=== PATIENT | female | born 1990 | race Caucasian/White ===

== ENCOUNTER 2021-10-18 17:33 | Emergency (ER) | payer OTHER, SELFPAY ==
[2021-10-18 17:51] VITALS: BP 123/71; PULSE 87; RESP 20; TEMP 37; O2SAT 100
--- NOTE | 2021-10-18 18:16 | ED.GENADULT ---
HPI - General Adult General Chief complaint: Dental/Oral Stated complaint: Toothache/ Facial Swelling Source: patient Mode of arrival: ambulatory Limitations: no limitations History of Present Illness HPI narrative: Patient presents for evaluation of left upper dental pain for the last 4 days. Pain is constant, throbbing, 9 out of 10 in severity. She reports some left maxillary facial swelling. She has a known dental fracture in the affected area which is not new per her reports. No difficulty handling secretions. No trismus. No fever, chills, nausea, vomiting. She has tried taking ibuprofen, naproxen, Tylenol, and tramadol without significant improvement in her symptoms thereafter. She does have an underlying allergy to PCN but states that she is able to tolerate amoxicillin. She has an appt with a dentist in November. No additional complaints or concerns. Related Data Home Medications Medication Instructions Recorded Confirmed lisinopril 10 mg tablet 10 mg PO DAILY 10/18/21 10/18/21 naproxen 375 mg tablet 375 mg PO BID 10/18/21 10/18/21 tramadol 50 mg tablet 50 mg PO QID PRN Pain 10/18/21 10/18/21 Allergies Allergy/AdvReac Type Severity Reaction Status Date / Time Penicillins Allergy Rash Verified 10/18/21 17:50 Review of Systems Review of Systems: CONSTITUTIONAL: Denies fever, chills, or sweats. EYES: Denies visual changes, redness, or discharge. ENT: Reports left sided facial swelling and left upper dental pain. CARDIOVASCULAR: Denies chest pain, palpitations, or edema. RESPIRATORY: Denies cough or dyspnea. GASTROINTESTINAL: Denies abdominal pain, nausea, vomiting, or diarrhea. GENITOURINARY: Denies dysuria or hematuria. SKIN: Denies rash or itching. MUSCULOSKELETAL: Denies back pain, joint pain, or myalgia. NEUROLOGIC: Denies headache, numbness, dizziness, or weakness. PSYCHIATRIC: Denies anxiety or depression. [facility] Past Medical History Medical History Tooth fracture Surgical History Surgical History History of Family History Family History Mother No pertinent family history Social History Social History Alcohol intake: never Substance use: never Living arrangements: with family Gender identity (if verbalized by the patient): Female Sexual Orientation (if Verbalized by the Patient): Straight or Heterosexual Spiritual care concerns: No Exam Narrative: GENERAL: Well-appearing, well-nourished, and in no acute distress. HEAD: Atraumatic. There is swelling noted to left maxillary region EYES: PERRLA and EOMI. ENT: Nares clear, no rhinorrhea or epistaxis. Mucous membranes moist. Overall poor dentition. There is erosion to enamel of multiple teeth. Tooth #12 is fractured. There is some tenderness in the gumline superior to tooth #12. Oropharynx without tonsillar hypertrophy exudate or other lesions. Bilateral TMs pearly hood nonbulging NECK: Supple. No adenopathy or masses. No carotid bruits or JVD CHEST: Clear to auscultation. No respiratory distress. No wheezes rales or rhonchi HEART: Regular rate and rhythm. No murmur heard. Normal peripheral pulses. ABDOMEN: Soft, nontender, nondistended, normal active bowel sounds. EXTREMITIES: Normal range of motion. No edema. SKIN: Warm, dry, no rash. NEURO: No focal deficits. Alert and oriented x3. PSYCH: Normal mood and affect. Course Course Emergency Course: This is a 31-year-old female here today for dental pain. There is a fracture of tooth #12. She has tolerated amoxicillin in the past. Will dc amoxicillin and hydrocodone. Follow-up with dentist. Go to the ER for decline in condition. Patient agreement plan of care. Level of Care: Express Care Visit Vital Signs Vital signs:
== END 2021-10-18 18:20 | disposition home or self-care (01) ==
PROVIDERS: Emergency Provider Nurse Practitioner; PCP Family Medicine
DX: S02.5XXA Fracture of tooth (traumatic), initial encounter for closed fracture (principal); X58.XXXA Exposure to other specified factors, initial encounter
CPT/HCPCS: 99213; G0463

== ENCOUNTER 2021-12-25 18:21 | Emergency (ER) | payer OTHER, SELFPAY ==
--- NOTE | 2021-12-25 18:24 | ED.URI ---
HPI - URI/Sore Throat General Chief Complaint: Upper Respiratory Infection Stated Complaint: Chest Congestion/Sore Throat/Fever Time Seen by Provider: 12/25/21 18:24 Source: patient and RN notes reviewed History of Present Illness HPI Narrative: Patient is a 31-year-old female who presents the urgent care with complaints of sore throat, fever, cough, congestion. Patient states that started yesterday and she has felt very fatigued today. Patient had a COVID booster on Wednesday due to work policy. Patient states has been taking Tylenol without much relief. 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 Other acute complaints. No acute distress noted. Patient aware of the plan of care. Some parts of this dictation were generated by voice recognition software and may contain typographical and/or grammatical inaccuracies. Related Data Home Medications Medication Instructions Recorded Confirmed lisinopril 10 mg tablet 10 mg PO DAILY 10/18/21 12/25/21 naproxen 375 mg tablet 375 mg PO BID 10/18/21 12/25/21 tramadol 50 mg tablet 50 mg PO QID PRN Pain 10/18/21 12/25/21 Allergies Allergy/AdvReac Type Severity Reaction Status Date / Time Penicillins Allergy Rash Verified 12/25/21 18:58 Review of Systems Review of Systems: CONSTITUTIONAL: Reports of fever and chills EYES: Denies visual changes, redness, or discharge. ENT: Reports of rhinorrhea, nasal congestion, sore throat CARDIOVASCULAR: Denies chest pain, palpitations, or edema. RESPIRATORY: Reports a cough without dyspnea GASTROINTESTINAL: Denies abdominal pain, nausea, vomiting, or diarrhea. GENITOURINARY: Denies dysuria or hematuria. SKIN: Denies rash or itching. MUSCULOSKELETAL: Denies back pain, joint pain. Reports of body aches NEUROLOGIC: Denies headache, numbness, or weakness. All other systems reviewed are negative, except as documented in HPI. [facility] Past Medical History Medical History Tooth fracture Surgical History Surgical History History of Family History Family History Mother No pertinent family history Social History Social History Alcohol intake: never Substance use: never Gender identity (if verbalized by the patient): Female Sexual Orientation (if Verbalized by the Patient): Straight or Heterosexual Spiritual care concerns: No Comments At the time of my signature, I reviewed and agree with the nursing past medical, surgical, social, and family history. There is no relevant family history pertinent to the patient complaint. Exam Narrative: GENERAL: This is a well-nourished, well-developed patient. Appears fatigued HEAD: normocephalic, atraumatic. EYES: PERRL. Sclera clear/white. Vision is grossly intact. EARS: External ears normal, auditory canals clear and without drainage, TMs normal without perforation. Hearing grossly intact. NOSE: External nose normal with no obvious nasal discharge. Bilateral erythemic nares with clear rhinorrhea THROAT: Mucous membranes moist. Moderate postnasal drainage with moderate erythema without exudate or ulceration. No tonsillar edema. NECK: Neck supple, non-tender without lymphadenopathy CARDIOVASCULAR: Regular rate and rhythm without murmurs, gallops, or rubs. RESPIRATORY: Harsh cough noted on exam. Clear to auscultation. Breath sounds equal bilaterally. No wheezes, rales, or rhonchi. SKIN: Flushed. Warm, intact with no suspicious lesions or rash, good texture and turgor. NEURO: awake, alert, and oriented to person, place and time. There were no obvious focal neurologic abnormalities. EXTREMITIES: No clubbing, cyanosis, or edema. Course Course Level of Care: Express Care Visit Vital Signs Vital si
[2021-12-25 18:30] VITALS: BP 126/77; PULSE 116; RESP 20; TEMP 37.2; O2SAT 99
== END 2021-12-25 19:13 | disposition home or self-care (01) ==
PROVIDERS: Emergency Provider Nurse Practitioner Family; PCP Family Medicine
DX: B34.9 Viral infection, unspecified (principal)
CPT/HCPCS: 87081; 87804; 87880; 99213; G0463

== ENCOUNTER 2022-01-20 08:48 | Emergency (ER) | payer OTHER, SELFPAY ==
--- NOTE | ~2022-01-20 | XR_ITS ---
EXAMINATION: XR knee RT min 4V DATE: 01/20/2022 09:24 INDICATION: Right knee pain TECHNIQUE: Four views of the right knee were obtained. COMPARISON: None. FINDINGS: Alignment is normal. No fracture or osteochondral lesion. Joint spaces are normal with no e rosions. No joint effusion/synovitis. Soft tissues are unremarkable. IMPRESSION: 1. No acute osseous abnormality. Reviewed, dictated and finalized at location A.
--- NOTE | ~2022-01-20 | XR_ITS ---
EXAMINATION: XR ankle RT min 3V INDICATION: Right ankle pain TECHNIQUE: Four views of the right ankle are obtained. COMPARISON: None available FINDINGS: Bone alignment is normal. There is no fracture. A plantar calcaneal enthesophyte is noted. IMPRESSION: 1. No acute osseous abnormality. Reviewed, dictated and finalized at location A.
[2022-01-20 08:54] VITALS: BP 126/74; PULSE 85; RESP 16; TEMP 36.2; O2SAT 100
--- NOTE | 2022-01-20 09:11 | ED.GENADULT ---
HPI - General Adult General Chief complaint: Fall Stated complaint: Fall Injury/Right Foot/Knee Source: patient Mode of arrival: ambulatory Limitations: no limitations History of Present Illness HPI narrative: Patient presents for evaluation of right ankle and right knee pain. She indicates she was running in her yard last night to get her dog when she stepped in a hole. She twisted her right ankle and fell to the ground. She did not hit her head nor have loss of consciousness. Not on blood thinners. She now reports 10 out of 10 pain in the right ankle and right knee. Pain in right knee radiates into the right hip. She has a hx of sciatica for which she takes naproxen at home. She tried tylenol and naproxen with some improvement in her symptoms. No loss of ROM. Movement and weight bearing make her pain worse. No additional complaints or concerns. Related Data Home Medications Medication Instructions Recorded Confirmed lisinopril 10 mg tablet 10 mg PO DAILY 10/18/21 01/20/22 naproxen 375 mg tablet 375 mg PO BID 10/18/21 01/20/22 Allergies Allergy/AdvReac Type Severity Reaction Status Date / Time Penicillins Allergy Rash Verified 01/20/22 09:07 Review of Systems Review of Systems: CONSTITUTIONAL: Denies fever, chills, or sweats. EYES: Denies visual changes, redness, or discharge. ENT: Denies rhinorrhea, congestion, sore throat, or otalgia. CARDIOVASCULAR: Denies chest pain, palpitations, or edema. RESPIRATORY: Denies cough or dyspnea. GASTROINTESTINAL: Denies abdominal pain, nausea, vomiting, or diarrhea. GENITOURINARY: Denies dysuria or hematuria. SKIN: Denies rash or itching. MUSCULOSKELETAL: Reports right knee and right ankle pain. NEUROLOGIC: Denies headache, numbness, dizziness, or weakness. PSYCHIATRIC: Denies anxiety or depression. [facility] Past Medical History Medical History (Updated 01/20/22 @ 09:47 by DENILSON Thompson, JER) Right ankle sprain Tooth fracture Surgical History Surgical History History of History of cholecystectomy History of tonsillectomy Family History Family History Mother No pertinent family history Father Heart disease Social History Social History Smoking status: Never smoker Alcohol intake: never Substance use: current Substance use type: marijuana Living arrangements: with family Gender identity (if verbalized by the patient): Female Sexual Orientation (if Verbalized by the Patient): Straight or Heterosexual Spiritual care concerns: No Exam Narrative: GENERAL: Well-appearing, well-nourished, and in no acute distress. HEAD: Normocephalic, atraumatic. EYES: PERRLA and EOMI. ENT: Nares clear, no rhinorrhea or epistaxis. Mucous membranes moist. Oropharynx without tonsillar hypertrophy exudate or other lesions. Bilateral TMs pearly hood nonbulging NECK: Supple. No adenopathy or masses. No carotid bruits or JVD CHEST: Clear to auscultation. No respiratory distress. No wheezes rales or rhonchi HEART: Regular rate and rhythm. No murmur heard. Normal peripheral pulses. ABDOMEN: Soft, nontender, nondistended, normal active bowel sounds. EXTREMITIES: There is tenderness noted in the anterior aspect of the right knee, without crepitus or deformity. No swelling. Decreased range of motion of the right knee secondary to pain. There is tenderness over the right medial and lateral malleolus. There is no crepitus or deformity. Able to wiggle all digits of the right foot. Exhibits hesitancy with dorsi and plantar flexion secondary to pain. SKIN: Warm, dry, no rash. NEURO: No focal deficits. Alert and oriented x3. PSYCH: Normal mood and affect. Course Course Emergency Course: This is a 32-year-old female who presented for evaluation of right knee and right ankle
== END 2022-01-20 09:50 | disposition home or self-care (01) ==
PROVIDERS: Emergency Provider Nurse Practitioner; PCP Family Medicine
DX: S80.01XA Contusion of right knee, initial encounter (principal); S93.401A Sprain of unspecified ligament of right ankle, initial encounter; W17.2XXA Fall into hole, initial encounter
CPT/HCPCS: 73564; 73610; 99214; G0463

== ENCOUNTER 2022-04-14 10:34 | Emergency (ER) | payer OTHER, SELFPAY ==
[2022-04-14 10:49] VITALS: BP 135/74; PULSE 81; RESP 16; TEMP 36.9; O2SAT 99
--- NOTE | 2022-04-14 11:07 | ED.URI ---
HPI - URI/Sore Throat General Chief Complaint: Upper Respiratory Infection Stated Complaint: cold/flu Time Seen by Provider: 04/14/22 11:00 Source: patient and RN notes reviewed Mode of arrival: ambulatory Limitations: no limitations History of Present Illness HPI Narrative: 32-year-old female presenting for complaint of cough that will not stop for 4 days. Cough is nonproductive. She endorses it feels like someone is sitting on her chest and her throat is on fire. She endorses a temperature up to 101 last night, and has had diarrhea. She denies shortness of breath, wheezing, nausea or vomiting. She is not taking anything for symptoms. Reports Daughter is also sick. MD elicited complaint: cough Related Data Home Medications Medication Instructions Recorded Confirmed lisinopril 10 mg tablet 10 mg PO DAILY 10/18/21 04/14/22 albuterol sulfate 90 mcg/actuation 2 puff inhalation Q4-6H PRN 04/14/22 04/14/22 aerosol inhaler Shortness Of Breath Allergies Allergy/AdvReac Type Severity Reaction Status Date / Time Penicillins Allergy Rash Verified 04/14/22 11:03 Review of Systems Review of Systems: per HPI [facility] Past Medical History Medical History Right ankle sprain Tooth fracture Surgical History Surgical History History of History of cholecystectomy History of tonsillectomy Family History Family History Mother No pertinent family history Father Heart disease Social History Social History Smoking status: Never smoker Alcohol intake: never Substance use: current Substance use type: marijuana Gender identity (if verbalized by the patient): Female Sexual Orientation (if Verbalized by the Patient): Straight or Heterosexual Spiritual care concerns: No Exam Narrative: GENERAL: Ill-appearing, nontoxic EYES: PERRLA, conjunctivae clear ENT: Mucous membranes moist. TM pearly hood with dull light reflex bilaterally; no tragal tenderness. Oropharynx erythematous without lesions or exudate, no drooling, no hoarseness, no trismus, uvula midline. CHEST: Clear to auscultation, breath sounds equal. No wheezing, rhonchi, rales, or stridor. No respiratory distress, speaks in full sentences. HEART: Regular rate and rhythm. SKIN: Warm, dry, no rash. NEURO: Alert and oriented x3. PSYCH: Normal mood and affect Course Course Emergency Course: Patient is aware of diagnosis, understands and agrees to treatment plan. Anticipatory guidance given. Patient agrees to follow-up as directed and is aware of reasons to seek care at the emergency department. Portions of this record may have been created with voice recognition software Level of Care: Express Care Visit Vital Signs Vital signs: Vital Signs Temperature 98.4 F 04/14/22 10:49 Pulse Rate 81 04/14/22 10:49 Respiratory Rate 16 04/14/22 10:49 Blood Pressure 135/74 04/14/22 10:49 Pulse Oximetry 99 04/14/22 10:49 Oxygen Delivery Room Air 04/14/22 10:49 Temperature 98.4 F 04/14/22 10:49 Pulse Rate 81 04/14/22 10:49 Respiratory Rate 16 04/14/22 10:49 Blood Pressure 135/74 04/14/22 10:49 Pulse Oximetry 99 04/14/22 10:49 Oxygen Delivery Room Air 04/14/22 10:49 reviewed MDM - URI/Sore Throat MDM Narrative Medical decision making narrative: Advised supportive measures and signs/symptoms to go to the ER. Pt is appropriate for outpt treatment and f/u. Differential Diagnosis Differential diagnosis: Likely upper respiratory infection, sinusitis and viral infection Discharge Plan Discharge Clinical Impression: Viral infection Patient Disposition: Home, Self-Care Condition: Stable Instructions: Viral Syndrome (ED) Additional Instructions: Recommend [place]
== END 2022-04-14 11:12 | disposition home or self-care (01) ==
PROVIDERS: Emergency Provider Nurse Practitioner Family; PCP Family Medicine
DX: B34.9 Viral infection, unspecified (principal)
CPT/HCPCS: 99213; G0463

== ENCOUNTER 2022-07-09 08:57 | Emergency (ER) | payer OTHER, SELFPAY ==
--- NOTE | 2022-07-09 08:59 | ED.URI ---
HPI - URI/Sore Throat General Chief Complaint: Upper Respiratory Infection Stated Complaint: constant cough Time Seen by Provider: 07/09/22 08:59 Source: patient and RN notes reviewed History of Present Illness HPI Narrative: Patient is a 32-year-old female presents to urgent care with complaints of a cough for 5 days. Patient states she does have a history of asthma and has been needing her albuterol inhaler. Denies any wheezing or shortness of breath. Denies any fevers. Patient has been taking Robitussin, DayQuil and cold and flu medication. No other acute complaints. No acute distress noted. Patient aware plan of care. Some parts of this dictation were generated by voice recognition software and may contain typographical and/or grammatical inaccuracies. Related Data Home Medications Medication Instructions Recorded Confirmed albuterol sulfate 90 mcg/actuation 2 puff inhalation Q4-6H PRN 04/14/22 07/09/22 aerosol inhaler Shortness Of Breath Allergies Allergy/AdvReac Type Severity Reaction Status Date / Time Penicillins Allergy Rash Verified 07/09/22 09:07 Review of Systems Review of Systems: CONSTITUTIONAL: Denies fever, chills, or sweats. EYES: Denies visual changes, redness, or discharge. ENT: Denies rhinorrhea, congestion, sore throat, or otalgia. CARDIOVASCULAR: Denies chest pain, palpitations, or edema. RESPIRATORY: Reports nonproductive cough dyspnea GASTROINTESTINAL: Denies abdominal pain, nausea, vomiting, or diarrhea. GENITOURINARY: Denies dysuria or hematuria. SKIN: Denies rash or itching. MUSCULOSKELETAL: Denies back pain, joint pain, or myalgia. NEUROLOGIC: Denies headache, numbness, or weakness. All other systems reviewed are negative, except as documented in HPI. [facility] Past Medical History Medical History Right ankle sprain Tooth fracture Surgical History Surgical History History of History of cholecystectomy History of tonsillectomy Family History Family History Mother No pertinent family history Father Heart disease Social History Social History (Reviewed 04/14/22 @ 11:13 by CHICO Seay Smoking status: Never smoker Alcohol intake: never Substance use: current Substance use type: marijuana Living arrangements: with family Gender identity (if verbalized by the patient): Female Sexual Orientation (if Verbalized by the Patient): Straight or Heterosexual Spiritual care concerns: No Comments At the time of my signature, I reviewed and agree with the nursing past medical, surgical, social, and family history. There is no relevant family history pertinent to the patient complaint. Exam Narrative: GENERAL: This is a well-nourished, well-developed patient, in no apparent distress. HEAD: normocephalic, atraumatic. EYES: PERRL. Sclera clear/white. Vision is grossly intact. EARS: External ears normal, auditory canals clear and without drainage, TMs normal without perforation. Hearing grossly intact. NOSE: External nose normal with no obvious nasal discharge, nares without redness, no rhinorrhea. THROAT: Mucous membranes moist, posterior pharynx clear. Moderate postnasal drainage NECK: Neck supple, non-tender without lymphadenopathy CARDIOVASCULAR: Regular rate and rhythm without murmurs, gallops, or rubs. RESPIRATORY: Persistent harsh cough. Clear to auscultation. Breath sounds equal bilaterally. No wheezes, rales, or rhonchi. SKIN: warm, intact with no suspicious lesions or rash, good texture and turgor. NEURO: awake, alert, and oriented to person, place and time. There were no obvious focal neurologic abnormalities. EXTREMITIES: No clubbing, cyanosis, or edema. Course Course Level of Care: Express Care Visit Vital Signs Vital signs: Vital Signs Temperature 97.6 F
[2022-07-09 09:04] VITALS: BP 120/69; PULSE 101; RESP 20; TEMP 36.4; O2SAT 96
== END 2022-07-09 09:26 | disposition home or self-care (01) ==
PROVIDERS: Emergency Provider Nurse Practitioner Family; PCP Family Medicine
DX: R05.9 Cough, unspecified (principal); F12.90 Cannabis use, unspecified, uncomplicated
CPT/HCPCS: 99213; G0463

== ENCOUNTER 2022-07-17 13:31 | Emergency (ER) | payer OTHER, SELFPAY ==
[2022-07-17 13:36] VITALS: BP 130/70; PULSE 71; RESP 16; TEMP 36.8; O2SAT 97
--- NOTE | 2022-07-17 13:44 | ED.DENTAL ---
HPI - Dental/Oral General Chief complaint: Dental/Oral Stated complaint: tooth issue Time Seen by Provider: 07/17/22 13:49 Source: patient Mode of arrival: ambulatory History of Present Illness HPI Narrative: 32-year-old female presented for complaint of dental pain to the right lower as well as left upper dental pain For 5 days. Endorses right lower gum swelling gum line and pain radiating into the right ear. She endorses these teeth have been broken for quite some time. She is scheduled with a dentist on 09/17/2022. Denies difficulty maintaining secretions. She is taking naproxen And Tylenol for pain. Also states that Harinder called prescription for lidocaine. MD Complaint: tooth pain Related Data Home Medications Medication Instructions Recorded Confirmed albuterol sulfate 90 mcg/actuation 2 puff inhalation Q4-6H PRN 04/14/22 07/09/22 aerosol inhaler Shortness Of Breath Allergies Allergy/AdvReac Type Severity Reaction Status Date / Time Penicillins Allergy Rash Verified 07/09/22 09:07 Review of Systems Review of Systems: CONSTITUTIONAL: Denies body aches, fever, chills ENT: Denies rhinorrhea, congestion, sore throat Reports dental pain CARDIOVASCULAR: Denies chest pain, palpitations RESPIRATORY: Denies cough or dyspnea. SKIN: Denies rash, itching, or wounds. MUSCULOSKELETAL: Denies myalgia. NEUROLOGIC: Denies headache, numbness, tingling, or weakness. [facility] Past Medical History Medical History Right ankle sprain Tooth fracture Surgical History Surgical History History of History of cholecystectomy History of tonsillectomy Family History Family History Mother No pertinent family history Father Heart disease Social History Social History Smoking status: Never smoker Alcohol intake: never Substance use: current Substance use type: marijuana Living arrangements: with family Gender identity (if verbalized by the patient): Female Sexual Orientation (if Verbalized by the Patient): Straight or Heterosexual Spiritual care concerns: No Comments At time of signature, I have reviewed and agree with nursing past medical, surgical, social and family history unless otherwise noted. Please see nursing chart for further information. There is no relevant family history pertinent to the presenting complaint Exam Narrative: GENERAL: Appears in pain; no acute distress. HEAD: Normocephalic, atraumatic. EYES: EOMI. No redness or drainage. Conjunctivae normal. ENT: Dental pain location of #13 and #30. Broken teeth and caries throughout. No significant gum swelling or active drainage. Mucous membranes pink and moist. TMs normal bilaterally. Throat normal. Uvula midline. NECK: Normal AROM. No lymphadenopathy. CHEST: No respiratory distress. Clear to auscultation. HEART: Regular rate and rhythm. No murmur appreciated. SKIN: Warm, dry, no rash. Normal skin turgor. NEURO: No focal deficits. Alert and oriented x3. Gait steady. Course Course Emergency Course: Patient is aware of diagnosis, understands and agrees to treatment plan. Anticipatory guidance given. Patient agrees to follow-up as directed and is aware of reasons to seek care at the emergency department. Portions of this record may have been created with voice recognition software Level of Care: Express Care Visit Vital Signs Vital signs: Vital Signs Temperature 98.2 F 07/17/22 13:36 Pulse Rate 71 07/17/22 13:36 Respiratory Rate 16 07/17/22 13:36 Blood Pressure 130/70 07/17/22 13:36 Pulse Oximetry 97 07/17/22 13:36 Oxygen Delivery Room Air 07/17/22 13:36 Temperature 98.2 F 07/17/22 13:36 Pulse Rate 71 07/17/22 13:36 Respiratory Rate 16 07/17/22 13:36
== END 2022-07-17 14:00 | disposition home or self-care (01) ==
PROVIDERS: Emergency Provider Nurse Practitioner Family; PCP Family Medicine
DX: K02.9 Dental caries, unspecified (principal)
CPT/HCPCS: 99213; G0463

== ENCOUNTER 2022-09-05 09:07 | Emergency (ER) | payer OTHER, SELFPAY ==
--- NOTE | ~2022-09-05 | XR_ITS ---
EXAMINATION: XR lumbar spine 2-3V DATE: 09/05/2022 09:46 INDICATION: Low back pain. Fall. TECHNIQUE: 3 views of lumbar spine were obtained. COMPARISON: None. FINDINGS: Bone alignment is normal. Vertebral body heights are normal. There is mildly decreased disc height at L1-L2 with endplate osteophytes. The facet joints are unremarkable. Surgical clips in the right upper quadrant are likely from cholecystectomy. IMPRESSION: 1. Mild lumbar spondylosis. Reviewed, dictated and finalized at location A. IMPRESSION: 1. Mild lumbar spondylosis.
--- NOTE | ~2022-09-05 | XR_ITS ---
EXAMINATION: [id number] DATE: 09/05/2022 09:46 INDICATION: Posterior rib pain. Fall. TECHNIQUE: A frontal view of the chest and 2 views on 3 radiographs of the right ribs were obtained. COMPARISON: None. FINDINGS: The chest demonstrates clear lungs without pneumonia, pleural effusion, or pneumothorax. Th e heart size is normal. Surgical clips in the right upper quadrant are likely from cholecystectomy. IMPRESSION: 1. No rib fracture. Reviewed, dictated and finalized at location A. IMPRESSION: 1. No rib fracture.
[2022-09-05 09:12] VITALS: BP 115/81; PULSE 88; RESP 18; TEMP 36.9; O2SAT 99
--- NOTE | 2022-09-05 09:35 | ED.BACK ---
HPI - Back Pain/Injury General Chief Complaint: Back Pain/Injury Stated Complaint: Fall Injury/Low Back Pain/Right Arm/Righ Knee History of Present Illness HPI Narrative: 32-year-old female presents to urgent care today complaining right upper back pain, lower back pain, and right knee pain. Patient stated last night around midnight she got home from work and was walking down her stairs in the dark when there was a carseat cup cheung on the steps that her daughter placed there, and she stepped on it and fell down about 6 steps. Patient denies any loss of consciousness and remembers falling. Patient denies hitting her head or any neck pain. Patient right upper back pain is located in her right posterior ribs. Patient has a small abrasion to the right posterior rib, with a contusion. Patient states that she has pain with taking deep breaths, movement, cough, or laughing. Patient has a small contusion to the anterior surface of the right knee. Patient is able to bear weight on her right leg. Patient denies any fevers, dizziness, lightheadedness. Patient lower back pain is located near her sacrum. Patient endorses numbness and tingling down both of her legs. Patient denies any loss of bowel or bladder function. Denies saddle anesthesia. Related Data Home Medications Medication Instructions Recorded Confirmed lisinopril 10 mg tablet 10 mg PO DAILY 09/05/22 09/05/22 naproxen 375 mg tablet 375 mg PO BID 09/05/22 09/05/22 Allergies Allergy/AdvReac Type Severity Reaction Status Date / Time Penicillins Allergy Rash Verified 09/05/22 09:23 Review of Systems Review of Systems: CONSTITUTIONAL: Denies fever, chills, or sweats. EYES: Denies visual changes, redness, or discharge. ENT: Denies otalgia and sore throat CARDIOVASCULAR: Denies chest pain, palpitations, or edema. RESPIRATORY: Denies cough or dyspnea. Positive for pain with inspiration GASTROINTESTINAL: Denies abdominal pain, nausea, vomiting, or diarrhea. GENITOURINARY: Denies dysuria or hematuria. SKIN: Denies rash or itching. Positive for contusion and abrasion to right posterior rib and positive for contusion to right knee MUSCULOSKELETAL: Denies joint pain or myalgia. Positive for right posterior rib pain. Positive for for sacral pain. Positive for right knee pain. NEUROLOGIC: Denies headache, numbness, or weakness. Pertinent positives per HPI. [facility] Past Medical History Medical History Right ankle sprain Tooth fracture Surgical History Surgical History History of History of cholecystectomy History of tonsillectomy Family History Family History Mother No pertinent family history Father Heart disease Social History Social History Smoking status: Never smoker Alcohol intake: never Substance use: current Substance use type: marijuana Living arrangements: with family Gender identity (if verbalized by the patient): Female Sexual Orientation (if Verbalized by the Patient): Straight or Heterosexual Spiritual care concerns: No Comments At the time of my signature, I reviewed and agree with the nursing past medical, surgical, social, and family history. There is no relevant family history pertinent to the patient complaint. Exam Narrative: GENERAL: This is a well-nourished, well-developed patient, in no apparent distress. HEAD: normocephalic, atraumatic. EYES: PERRL. Sclera clear/white. Vision is grossly intact. EARS: External ears normal, auditory canals clear and without drainage, TMs normal without perforation. Hearing grossly intact. NOSE: External nose normal with no obvious nasal discharge, nares without redness, no rhinorrhea. THROAT: Mucous membranes moist, posterior pharynx clear. NECK: Nec
== END 2022-09-05 10:10 | disposition home or self-care (01) ==
PROVIDERS: Emergency Provider Nurse Practitioner Family; PCP Family Medicine
DX: M54.31 Sciatica, right side (principal); S20.211A Contusion of right front wall of thorax, initial encounter; W10.9XXA Fall (on) (from) unspecified stairs and steps, initial encounter; F12.90 Cannabis use, unspecified, uncomplicated
CPT/HCPCS: 71101; 72100; 99214; G0463

== ENCOUNTER 2023-03-11 16:41 | Emergency (ER) | payer OTHER, SELFPAY ==
[2023-03-11 17:02] VITALS: BP 112/68; PULSE 96; RESP 16; TEMP 36.7; O2SAT 98
--- NOTE | 2023-03-11 17:43 | ED.DENTAL ---
HPI - Dental/Oral General Chief complaint: Dental/Oral Stated complaint: Toothache/Cough Time Seen by Provider: 03/11/23 17:44 Source: patient, RN notes reviewed and old records reviewed Mode of arrival: ambulatory Limitations: no limitations History of Present Illness HPI Narrative: 33 year old female who presents to [facility] care with complaints of right back bottom tooth ache for the past 4 days and cough. Patient states that there is a portion of tooth breaking off she noted. Patient is 6 months and can't get into her dentist right away unless a cancellation.Patient also reports that she has a cough for about 3weeks with no known fevers, does have history of asthma. MD Complaint: tooth pain Location: Tooth # (31) Onset (ago): week(s) (4 dys dental 2 weeks cough) Severity: severe Severity scale (1-10): 8 Treatment prior to arrival: other (cough drops humidifer) Related Data Home Medications Medication Instructions Recorded Confirmed nifedipine 30 mg tablet,extended 1 mg PO DAILY 03/11/23 03/11/23 release 24 hr vitamin with calcium tablet PO DAILY 03/11/23 no.72-iron 27 mg-folic acid 1 mg tablet (M-Kylah Plus) Allergies Allergy/AdvReac Type Severity Reaction Status Date / Time Penicillins Allergy Rash Verified 09/05/22 09:23 Review of Systems Review of Systems: CONSTITUTIONAL: Denies fever, chills, or sweats. ENT: Denies rhinorrhea, congestion, sore throat, or otalgia. Reports dental pain #31 tooth with piece of tooth broken off. CARDIOVASCULAR: Denies chest pain, palpitations, or edema. RESPIRATORY: Reports cough denies dyspnea. SKIN: Denies rash or itching. MUSCULOSKELETAL: Denies myalgia. NEUROLOGIC: Denies headache All systems reviewed & are unremarkable except as noted in HPI and below PMFSH Past Medical History Medical History Asthma Chronic back pain Hypertension Right ankle sprain Tooth fracture Surgical History Surgical History History of History of cholecystectomy History of tonsillectomy Family History Family History Mother No pertinent family history Father Heart disease Social History Social History (Updated 03/15/23 @ 07:01 by Consuelo Orosco NP) Smoking status: Never smoker Alcohol intake: never Substance use: former Substance use type: marijuana Living arrangements: with family Gender identity (if verbalized by the patient): Female Sexual Orientation (if Verbalized by the Patient): Straight or Heterosexual Spiritual care concerns: No Comments At time of signature, agree with nursing past medical, surgical, social and family history. There is no relevant family history pertinent to the presenting complaint Exam Narrative: GENERAL: Well-appearing, well-nourished, and in no acute distress. HEAD: Normocephalic, atraumatic. EYES: PERRLA and EOMI. ENT: Nares clear, no rhinorrhea or epistaxis. Mucous membranes moist. #31 dental pain with part of tooth broken off, no swelling of face, some redness of gum around affected tooth, no trismus or Chung angina NECK: Supple. no lymphadenopathy CHEST: Clear to auscultation. No respiratory distress.dry cough SAO2 98% on room air HEART: Regular rate and rhythm. No murmur heard. Normal peripheral pulses. SKIN: Warm, dry, no rash. NEURO: No focal deficits. Alert and oriented x3. Course Course Emergency Course: Patient is aware of diagnosis, understands and agrees to treatment plan. Anticipatory guidance given. Patient agrees to follow-up as directed and is aware of reasons to seek care at the emergency department. Portions of this record may have been created with voice recognition software Level of Care: Express Care Visit Vital Signs Vital signs: Vital Signs Temperature 36.7 C 03/11/23 17:02 Pul
== END 2023-03-11 18:12 | disposition home or self-care (01) ==
PROVIDERS: Emergency Provider Registered Nurse; PCP Family Medicine
DX: K08.89 Other specified disorders of teeth and supporting structures (principal); R05.9 Cough, unspecified; J45.909 Unspecified asthma, uncomplicated; I10 Essential (primary) hypertension
CPT/HCPCS: 99213; G0463

== ENCOUNTER 2023-08-17 15:00 | Emergency (ER) | payer OTHER, SELFPAY ==
[2023-08-17 15:05] VITALS: BP 129/68; PULSE 82; RESP 16; TEMP 36.8; O2SAT 100
--- NOTE | 2023-08-17 15:41 | ED.GENADULT ---
HPI - General Adult General Chief complaint: Dental/Oral Stated complaint: Tooth Ache Source: patient Mode of arrival: ambulatory Limitations: no limitations History of Present Illness HPI narrative: Patient presents for evaluation of left upper and right lower dental pain. Left upper dental pain started 3 days ago right lower dental pain started 7 days ago. Pain on the left is 7/10 in severity and pain on right is 10/10. She has tried taking naproxen for pain. No fever, chills, nausea, vomiting. She is not diabetic. She does not smoke. She is planning on having several dental extractions. Related Data Allergies Allergy/AdvReac Type Severity Reaction Status Date / Time Penicillins Allergy Rash Verified 09/05/22 09:23 Review of Systems Review of Systems: CONSTITUTIONAL: Denies fever, chills, or sweats. EYES: Denies visual changes, redness, or discharge. ENT: Reports left upper and right lower dental pain. Denies rhinorrhea, congestion, sore throat, or otalgia. CARDIOVASCULAR: Denies chest pain, palpitations, or edema. RESPIRATORY: Denies cough or dyspnea. GASTROINTESTINAL: Denies abdominal pain, nausea, vomiting, or diarrhea. GENITOURINARY: Denies dysuria or hematuria. SKIN: Denies rash or itching. MUSCULOSKELETAL: Denies back pain, joint pain, or myalgia. NEUROLOGIC: Denies headache, numbness, dizziness, or weakness. PSYCHIATRIC: Denies anxiety or depression. [facility] Past Medical History Medical History Asthma Chronic back pain Hypertension Right ankle sprain Tooth fracture Surgical History Surgical History History of History of cholecystectomy History of tonsillectomy Family History Family History Mother No pertinent family history Father Heart disease Social History Social History Smoking status: Never smoker Alcohol intake: never Substance use: former Substance use type: marijuana Living arrangements: with family Gender identity (if verbalized by the patient): Female Sexual Orientation (if Verbalized by the Patient): Straight or Heterosexual Spiritual care concerns: No Exam Narrative: GENERAL: Well-appearing, well-nourished, and in no acute distress. HEAD: Normocephalic, atraumatic. EYES: PERRLA and EOMI. ENT: Nares clear, no rhinorrhea or epistaxis. Mucous membranes moist. Tooth #13 and tooth #31 are both fractured. There is no visible or palpable abscess. Oropharynx without tonsillar hypertrophy exudate or other lesions. Bilateral TMs pearly hood nonbulging NECK: Supple. No adenopathy or masses. No carotid bruits or JVD CHEST: Clear to auscultation. No respiratory distress. No wheezes rales or rhonchi HEART: Regular rate and rhythm. No murmur heard. Normal peripheral pulses. ABDOMEN: Soft, nontender, nondistended, normal active bowel sounds. EXTREMITIES: Normal range of motion. No edema. SKIN: Warm, dry, no rash. NEURO: No focal deficits. Alert and oriented x3. PSYCH: Normal mood and affect. Course Course Emergency Course: This is a 33-year-old female who presented for evaluation dental pain. Tooth # 13 and tooth #31 are fractured. She has had limited improvement in her pain with naproxen. Will give small qty of hydrocodone. Will also dc with clindamycin. Follow up with dentist. Go to the ER for intractable pain. Pt in agreement with plan of care. Level of Care: Express Care Visit Vital Signs Vital signs: Vital Signs Temperature 36.8 C 08/17/23 15:05 Pulse Rate 82 08/17/23 15:05 Respiratory Rate 16 08/17/23 15:05 Blood Pressure 129/68 08/17/23 15:05 Pulse Oximetry 100 08/17/23 15:05 Oxygen Delivery Room Air 08/17/23 15:05 Temperature 36.8 C 08/17/23 15:05 Pulse Rate 82
== END 2023-08-17 15:42 | disposition home or self-care (01) ==
PROVIDERS: Emergency Provider Nurse Practitioner; PCP Family Medicine
DX: S02.5XXA Fracture of tooth (traumatic), initial encounter for closed fracture (principal); I10 Essential (primary) hypertension; J45.909 Unspecified asthma, uncomplicated; M54.9 Dorsalgia, unspecified; G89.29 Other chronic pain
CPT/HCPCS: 99213; G0463

== ENCOUNTER 2024-01-13 15:47 | Emergency (ER) | payer OTHER, SELFPAY ==
[2024-01-13 16:13] VITALS: BP 112/62; PULSE 77; RESP 15; TEMP 36.6; O2SAT 99
--- NOTE | 2024-01-13 16:44 | ED.DENTAL ---
HPI - Dental/Oral General Chief complaint: Dental/Oral Stated complaint: tooth pain Time Seen by Provider: 01/13/24 16:30 Source: patient, RN notes reviewed and old records reviewed Mode of arrival: ambulatory Limitations: no limitations History of Present Illness HPI Narrative: 34 year old female who presents to [facility] care with complaints of dental pain to right lower molar #31 for the past 4 day which is broken off with red swollen gum around tooth. Patient also reports noted swelling to the lumph nodes on right side of her neck. Patient has numerous caries noted to remaining teeth with periodontal disease of gums. Patient reports that she does have an appointment with dental clinic in [place] for extraction and ultimately dentures. Patient reports that she has been taking Tylenol and Ibuprofen for her discomfort. Patient has no difficulty with her breathing or with wallowing no recent fevers noted, no trismus. MD Complaint: tooth pain Location: Tooth # (31) Onset (ago): day(s) (4 days of increased pain ) Severity: moderate Severity scale (1-10): 8 Treatment prior to arrival: oral analgesic (Tylenol and Ibuporfen) Related Data Allergies Allergy/AdvReac Type Severity Reaction Status Date / Time Penicillins Allergy Rash Verified 01/13/24 16:35 Review of Systems Review of Systems: CONSTITUTIONAL: Denies fever, chills, or sweats. ENT: Denies rhinorrhea, congestion, sore throat, or otalgia. Reports dental pain#31 tooth with tooth broken with swelling and redness of gum surrounding tooth, numerous caries in remaining teeth with gum disease CARDIOVASCULAR: Denies chest pain, palpitations, or edema. RESPIRATORY: Denies cough or dyspnea. SKIN: Denies rash or itching. MUSCULOSKELETAL: Denies myalgia. NEUROLOGIC: Denies headache All systems reviewed & are unremarkable except as noted in HPI and below PMFSH Past Medical History Medical History Asthma Chronic back pain Hypertension Right ankle sprain Tooth fracture Surgical History Surgical History History of History of cholecystectomy History of tonsillectomy Family History Family History Mother No pertinent family history Father Heart disease Social History Social History Smoking status: Never smoker Alcohol intake: never Substance use: former Substance use type: marijuana Living arrangements: with family Gender identity (if verbalized by the patient): Female Sexual Orientation (if Verbalized by the Patient): Straight or Heterosexual Spiritual care concerns: No Comments At time of signature, agree with nursing past medical, surgical, social and family history. There is no relevant family history pertinent to the presenting complaint Exam Narrative: GENERAL: Well-appearing, well-nourished, and in no acute distress. HEAD: Normocephalic, atraumatic. EYES: PERRLA and EOMI. ENT: Nares clear, no rhinorrhea or epistaxis. Mucous membranes moist. Missing teeth, broken teeth, caries to remaining teeth with gum disease, #31 tooth broken off with gum redness and swelling, no trismus or Chung angina no NECK: Supple.lymphadenopathy right neck noted CHEST: Clear to auscultation. No respiratory distress.SAO2 99% on room air HEART: Regular rate and rhythm. No murmur heard. Normal peripheral pulses. SKIN: Warm, dry, no rash. NEURO: No focal deficits. Alert and oriented x3. Course Course Emergency Course: Patient is aware of diagnosis, understands and agrees to treatment plan. Anticipatory guidance given. Patient agrees to follow-up as directed and is aware of reasons to seek care at the emergency department. Portions of this record may have been created with voice recognition software Level of Care: [facility] Care Visit V
== END 2024-01-13 16:57 | disposition home or self-care (01) ==
PROVIDERS: Emergency Provider Registered Nurse; PCP Family Medicine
DX: K02.9 Dental caries, unspecified (principal); K04.7 Periapical abscess without sinus; J45.909 Unspecified asthma, uncomplicated; I10 Essential (primary) hypertension
CPT/HCPCS: 99213; G0463

== ENCOUNTER 2024-02-28 15:03 | Emergency (ER) | payer OTHER, SELFPAY ==
[2024-02-28 15:26] VITALS: BP 101/81; PULSE 84; RESP 20; TEMP 36.4; O2SAT 98
--- NOTE | 2024-02-28 16:59 | ED.URI ---
HPI - URI/Sore Throat General Chief Complaint: Upper Respiratory Infection Stated Complaint: Toothache/Congestion/Cough/Chest Congestion Time Seen by Provider: 02/28/24 16:40 Source: patient, RN notes reviewed and old records reviewed Mode of arrival: ambulatory Limitations: no limitations History of Present Illness HPI Narrative: 34 year old female who presents to [facility] care with complaints of right lower back dental pain for weeks with #31 tooth broken and caries noted with redness and swelling of gum. Patient also complaints of 4 day history of acute cough, nasal congestion, headache, no known fevers or acute dyspnea reported, little wheeze stated at night. Patient reports that she has taken Ibuprofen and Tylenol for her dental pain and has been taking Mucinex and Robitussin for her cough, Patient does have history of asthma is non smoker. Patient reports that she has Dental appointment on March 14. MD elicited complaint: cough, rhinorrhea, nasal congestion and other (chest congestion and dental pain) Pertinent past history: asthma Onset (ago): day(s) (4 days respiratory symptoms, cough, and nasal congestion, weeks of dental problem) Severity: moderate Treatments prior to arrival: acetaminophen, ibuprofen and other (Mucinex, Robitussin) Related Data Allergies Allergy/AdvReac Type Severity Reaction Status Date / Time Penicillins Allergy Rash Verified 02/28/24 16:05 Review of Systems Review of Systems: CONSTITUTIONAL: Denies malaise, chills, sweats, or fever. EYES: Denies visual changes, redness, or discharge. ENT: Reports rhinorrhea, congestion,no sinus pain,no otalgia and no sore throat, dental pain #31 broken tooth with swelliing of gum CARDIOVASCULAR: Denies chest pain, palpitations, or edema. RESPIRATORY: Reports cough.? Denies acute dyspnea.reports noted wheezes at night oo GASTROINTESTINAL: Denies abdominal pain, nausea, vomiting, diarrhea SKIN: Denies rash or itching. MUSCULOSKELETAL: Denies myalgia. NEUROLOGIC: Reports headache. All systems reviewed & are unremarkable except as noted in HPI and below PMFSH Past Medical History Medical History Asthma Chronic back pain Hypertension Right ankle sprain Tooth fracture Surgical History Surgical History History of History of cholecystectomy History of tonsillectomy Family History Family History Mother No pertinent family history Father Heart disease Social History Social History Smoking status: Never smoker Alcohol intake: never Substance use: former Substance use type: marijuana Living arrangements: with family Gender identity (if verbalized by the patient): Female Sexual Orientation (if Verbalized by the Patient): Straight or Heterosexual Spiritual care concerns: No Comments At time of signature, agree with nursing past medical, surgical, social and family history. There is no relevant family history pertinent to the presenting complaint Exam Narrative: GENERAL: Well-appearing, well-nourished, and in no acute distress. HEAD: Normocephalic EYES: PERRLA, conjunctivae clear ENT: Nares clear, turbinates edematous and erythematous, clear discharge. Mucous membranes moist. TM pearly hood with dull light reflex bilaterally; no tragal tenderness. Oropharynx erythematous without lesions. Tonsils not present and throat without exudate, no drooling, no hoarseness, no trismus, uvula midline.post nasal drainage, #31 tooth broken with noted caries,gum red and swollen around tooth. no trismus or Chung angina NECK: Supple. No lymphadenopathy CHEST: Clear to auscultation, breath sounds equal. No wheezing, rhonchi, rales, or stridor. No respiratory distress, speaks in full sentences.cough noted SAO2 98% on room air HEART: Regular rate and rhythm. No murmur heard. SKIN: Warm, dry, no rash. NEURO: Alert and oriented x3. PSYCH: Normal mood and affect Course Course Emergency Course: Patient is aware of diagnosis, understands and agrees to treatment plan.? Anticipatory guidance given.? Patient agrees to follow-up as directed and is aware of reasons to seek care at the emergency department. Portions of this record may have been created with voice recognition software Level of Care: Express Care Visit Vital Signs Vital signs: Vital Signs Temperature 36.4 C L 02/28/24 15:26 Pulse Rate 84 02/28/24 15:26 Respiratory Rate 20 02/28/24 15:26 Blood Pressure 101/81 02/28/24 15:26 Pulse Oximetry 98 02/28/24 15:26 Oxygen Delivery Room Air 02/28/24 15:26 Temperature 36.4 C L 02/28/24 15:26 Pulse Rate 84 02/28/24 15:26 Respiratory Rate 20 02/28/24 15:26 Blood Pressure 101/81 02/28/24 15:26 Pulse Oximetry 98 02/28/24 15:26 Oxygen Delivery Room Air 02/28/24 15:26 Reviewed MDM - URI/Sore Throat MDM Narrative Medical decision making narrative: Differential diagnosis considered: Edward virus, strep pharyngitis, allergic rhinitis, upper respiratory tract infection, sinusitis, rhinosinusitis, nasopharyngitis. viral pharyngitis, otitis media, otitis externa, pneumonia, bronchitis, viral cough syndrome, viral syndrome, and influenza.? Exam findings show no acute concerns or changes; patient is non-toxic appearing and is in no distress.? Patient is appropriate for outpatient treatment and follow-up. Differential Diagnosis Differential diagnosis: Likely upper respiratory infection, sinusitis, viral infection and other (acute cough, dental abscess, dentalgia) Medical Records Attestation: I reviewed the patient's medical records. Lab Data Attestation: I reviewed the patient's lab results. Critical Care Time Critical Care Time Critical Care Time: No Discharge Plan Discharge Clinical Impression: URI, acute, Abscess, dental, Acute cough Patient Disposition: Home, Self-Care Condition: Stable Instructions: Antibiotic Form, Dental Abscess (ED), Acute Cough (ED) Additional Instructions: Avoid temperature extremes May apply heat or ice to the face Gentle brushing and flossing Antibiotic as directed Tylenol for lesser pain Use ibuprofen regularly Follow-up with the dentist as soon as possible- Increase fluids especially juices and water [id number] cough and cold medicine of your choice for your symptoms Continue your inhaler/nebulizer as directed Steroids as directed--take with food heat to the face 20-30 minutes 4-6 times a day for pain Salt water gargles, throat lozenges or throat sprays as desired If your symptoms persist, change or worsen significantly before you can contact your personal physician then please, without delay, go to the emergency department for further evaluation. Follow-up with PCP in 7-10 days or sooner if needed Prescriptions: New clindamycin HCl 300 mg capsule 300 mg PO Q8H Qty: 30 0RF Rx Instructions: take with food albuterol sulfate [Ventolin HFA] 90 mcg/actuation HFA aerosol inhaler 2 puff inhalation QID PRN (Reason: shortness of breath or wheezing) Qty: 6.7 0RF prednisone 20 mg tablet 20 mg PO BID Qty: 10 0RF Follow-up/Referrals: Harms,Chemo Holliday M.D. [Primary Care Provider] - Time of Disposition: 17:09 Quality Sharon Coma Scale Eyes: Open Verbal: Oriented and Alert Motor: Follows Commands Sharon Coma Total Score: 15
== END 2024-02-28 17:10 | disposition home or self-care (01) ==
PROVIDERS: Emergency Provider Registered Nurse; PCP Family Medicine
DX: J06.9 Acute upper respiratory infection, unspecified (principal); K04.7 Periapical abscess without sinus; R05.1 Acute cough; J45.909 Unspecified asthma, uncomplicated; I10 Essential (primary) hypertension
CPT/HCPCS: 99213; G0463